=== PATIENT | female | born 1945 | race Caucasian/White ===

== ENCOUNTER 2016-06-23 07:46 | Day surgery (SDC) | payer MEDICARE, BC ==
[2016-06-23] MEDS ORDERED: THROMBIN (BOVINE) TOPICAL 5000 UNIT VIAL ONE (08:10)
[2016-06-23] MEDS ORDERED: MIDAZOLAM 2 MG/2 ML INJ ONE (08:33)
[2016-06-23] MEDS ORDERED: FENTANYL CITRATE INJ/PF 100 MCG/2 ML AMPUL ONE (08:33)
[2016-06-23] MEDS ORDERED: PROPOFOL INJ 200 MG/20 ML VIAL IV ONE (08:34)
[2016-06-23] MEDS ORDERED: ONDANSETRON HCL INJ/PF 4 MG/2 ML SDV ONE (08:34)
[2016-06-23] MEDS ORDERED: LIDOCAINE 2% INJ-PF (20 MG/ML) 10 ML AMPUL ONE (08:34)
[2016-06-23] MEDS: TETRACAINE HCL 0.5% OPH SOLN 2 ML ONE ×2 (08:48)
[2016-06-23] MEDS: POVIDONE-IODINE 5% OPH PREP SOLN 30 ML ONE ×2 (08:50)
[2016-06-23] MEDS: BUPIVACAINE HCL 0.75% INJ/PF (7.5 MG/1 ML) 10 ML SDV ONE ×2 (08:56)
[2016-06-23] MEDS: LIDOCAINE 2%/EPINEPHRINE INJ 20 ML VIAL ONE ×2 (08:56)
[2016-06-23] MEDS: TOBRAMYCIN SULFATE/DEXAMETH OPH OINTMENT 3.5 GM ONE ×2 (09:38)
--- NOTE | 2016-06-23 09:53 | [facility] DISCHARGE SUMMARY E ---
[facility] Discharge Summary NAME: ELEUTERIO WASHINGTON AGE: 71Y ADMITTED: 06/23/2016 DISCHARGED: 06/23/2016 ADMISSION DIAGNOSIS: BILATERAL UPPER EYELID DERMATOCHALASIS WITH VISUAL FIELD LOSS. DISCHARGE DIAGNOSIS: BILATERAL UPPER EYELID DERMATOCHALASIS WITH VISUAL FIELD LOSS. HOSPITAL COURSE: The patient is a 71-year-old lady who underwent uneventful upper eyelid blepharoplasty. She will be discharged to home. She is instructed to resume her preoperative medications, to take Tylenol as needed for discomfort, to keep the head of her bed elevated at 45 degrees, to use the blepharoplasty ice pack 10 minutes out of every hour while awake for the first 24 hours, and to follow up in my office in 1 week. DICTATING PHYSICIAN: CLEMENT LA M.D. [id number] PHY#: [id number] ID: [id number] JOB#: [id number] ACCT: [id number] cc:CLEMENT LA M.D. >
--- NOTE | 2016-06-23 09:54 | [facility] OPERATIVE REPORT E ---
[facility] NAME: ELEUTERIO WASHINGTON AGE: 71Y DATE OF SURGERY: 06/22/2016 ROOM: PREOPERATIVE DIAGNOSIS: Bilateral upper eyelid dermatochalasis with visual field loss. POSTOPERATIVE DIAGNOSIS: Bilateral upper eyelid dermatochalasis with visual field loss. OPERATION: Bilateral upper eyelid blepharoplasty. SURGEON: CLEMENT LA M.D. ANESTHESIA: Local with MAC. PROCEDURE: Patient was brought to the operating room and tetracaine drops placed in the eye. Under monitored anesthesia care, both upper eyelids were sterilely prepped and draped in the usual manner. Attention was directed to the left upper lid where the upper lid crease was marked and 0.3 mm forceps were used to estimate the excess upper eyelid skin to be excised. This was marked in elliptical fashion. An identical procedure was performed on the right upper lid. Local anesthesia was administered. This consisted of 2 mL of 2% Xylocaine with epinephrine mixed with 0.75% Marcaine. This was easily administered under both upper lids in the previously marked sites and diffused using a Q-Tip. Attention was directed to the left upper lid where the elliptical piece of skin was removed. Hemostasis was obtained with bipolar cautery. The orbital septum was opened medially and prolapsed retroseptal fat was grasped with a hemostat, cut, and cauterized. Identical procedure was performed on the right upper lid. Thrombin was placed on both incisions. Wound closure was completed with 3 interrupted 6-0 Silk sutures taking a deep bite of the fascia and a running 6-0 nylon suture to both upper lids. There was good hemostasis and full closure at the end of the surgery. Patient tolerated the procedure well and was sent to the recovery room in good condition. DICTATING PHYSICIAN: CLEMENT LA M.D. [id number] PHY#: [id number] ID: [id number] JOB#: [id number] ACCT: [id number] cc:CLEMENT LA M.D. >
== END 2016-06-23 10:29 | disposition home or self-care (01) ==
LOC: SC 07:46
PROVIDERS: ATTEND Ophthalmology
PROC: 080N0ZZ Alteration of Right Upper Eyelid, Open Approach (ICD-10-PCS; 2016-06-23)
PROC: 080P0ZZ Alteration of Left Upper Eyelid, Open Approach (ICD-10-PCS; principal; 2016-06-23 08:45)
DX: H02.831 Dermatochalasis of right upper eyelid (principal); H02.834 Dermatochalasis of left upper eyelid; M06.9 Rheumatoid arthritis, unspecified; E11.9 Type 2 diabetes mellitus without complications; I10 Essential (primary) hypertension; K21.9 Gastro-esophageal reflux disease without esophagitis; Z87.891 Personal history of nicotine dependence; Z79.899 Other long term (current) drug therapy; Z79.84 Long term (current) use of oral hypoglycemic drugs; Z88.5 Allergy status to narcotic agent; Z88.2 Allergy status to sulfonamides
CPT/HCPCS: 15823; 82962; J2250; J3490 ×6; J3010; J2405; J2704; 103

== ENCOUNTER → 2020-02-11 | Outpatient (CLI) | payer MEDICARE, BC ==
[2020-02-11 15:56] LABS: ABSOLUTE EOSINOPHILS # (AUTO) 0.1 10^3/uL (0.0-0.6); ABSOLUTE LYMPHOCYTES (AUTO) 2.8 10^3/uL (0.5-4.7); ABSOLUTE MONOCYTES (AUTO) 0.7 10^3/uL (0.1-1.4); ABSOLUTE NEUT (AUTO) 7.6 10^3/uL (1.7-8.2); BASOPHILS % (AUTO) 0.4 % (0-2); EOSINOPHILS % (AUTO) 1.3 % (0-6); HEMATOCRIT 41.4 % (36.0-47.0); HEMOGLOBIN 13.4 g/dL (12.0-15.5); LYMPHOCYTES % (AUTO) 24.9 % (13-45); MEAN CORPUSCULAR HEMOGLOBIN 26.5 pg (27.0-33.4); MEAN CORPUSCULAR HGB CONC 32.4 g/dL (32.0-36.0); MEAN CORPUSCULAR VOLUME 82 fl (80-97); MONOCYTES % (AUTO) 6.4 % (3-13); PLATELET COUNT 268 10^3/uL (150-450); RED BLOOD COUNT 5.06 10^6/uL (3.72-5.28); RED CELL DISTRIBUTION WIDTH 16.1 % (11.5-14.0); TOTAL CELLS COUNTED % (AUTO) 100 %; WHITE BLOOD COUNT 11.3 10^3/uL (4.0-10.5)
[2020-02-11 16:15] LABS: ALBUMIN 4.3 g/dL (3.5-5.0); ALKALINE PHOSPHATASE 76 U/L (38-126); ANION GAP 10 (5-19); ASPARTATE AMINO TRANSFERASE 25 U/L (14-36); BILIRUBIN,DIRECT 0.3 mg/dL (0.0-0.4); BILIRUBIN,TOTAL 0.5 mg/dL (0.2-1.3); BLOOD UREA NITROGEN 14 mg/dL (7-20); CALCIUM 9.7 mg/dL (8.4-10.2); CARBON DIOXIDE 27 mmol/L (22-30); CHLORIDE 104 mmol/L (98-107); GLUCOSE 125 mg/dL (75-110); TOTAL PROTEIN 7.1 g/dL (6.3-8.2)
== END ==
LOC: OD 14:50
PROVIDERS: ATTEND Specialist/Technologist Athletic Trainer
DX: I10 Essential (primary) hypertension (principal); Z11.2 Encounter for screening for other bacterial diseases
CPT/HCPCS: 36415; 80053; 85025; 87070